=== PATIENT | male | born 1945 | race Caucasian/White ===

== ENCOUNTER 2025-05-05 14:57 | Inpatient (IN) | payer MEDICARE, OTHER ==
[~2025-05-05] VITALS: Ht 172.7 cm; Wt 68.0 kg
[2025-05-05 15:09] VITALS: BP 135/85; TEMP 98
[2025-05-05 15:36] VITALS: BP 135/85; TEMP 98
[2025-05-05 21:00] VITALS: BP 137/66; TEMP 98.2; O2SAT 95
[2025-05-05] MEDS ORDERED: TRAN650T2 PO (21:28)
[2025-05-05] MEDS ORDERED: PRAV40TA3 PO (21:28)
[2025-05-05] MEDS ORDERED: OXYC-470 PO (21:28)
[2025-05-05] MEDS ORDERED: ACET-73 PO (21:28)
[2025-05-05] MEDS ORDERED: TAMS-3 PO (21:28)
[2025-05-05] MEDS ORDERED: OMEP20TA20 PO (21:28)
[2025-05-05] MEDS ORDERED: MELO15TA13 PO (21:28)
[2025-05-05] MEDS ORDERED: TRAM50TA PO ×2 (21:28)
[2025-05-05] MEDS ORDERED: TADA5TAB2 PO (21:28)
[2025-05-05] MEDS ORDERED: ASPI81TA31 PO (21:28)
[2025-05-05] MEDS ORDERED: BUPR300T52 PO (21:28)
[2025-05-05] MEDS ORDERED: CYAN-51 PO (21:28)
[2025-05-05] MEDS ORDERED: SENN1TAB33 PO (21:28)
[2025-05-05] MEDS ORDERED: OXYCODONE HCL 5 MG TABLET PO PRN (23:00)
[2025-05-05] MEDS ORDERED: TRAMADOL HCL 50 MG TABLET PO PRN (23:00)
[2025-05-06 06:00] VITALS: BP 156/77; TEMP 98.1; O2SAT 95
[2025-05-06] MEDS: PANTOPRAZOLE SODIUM 40 MG TABLET.DR PO SCH (07:06)
[2025-05-06 07:34] VITALS: BP 147/70; TEMP 97.9; O2SAT 94
[2025-05-06] MEDS ORDERED: TRANEXAMIC ACID PO SCH (09:00)
[2025-05-06] MEDS ORDERED: MELOXICAM 7.5 MG TABLET PO SCH (09:00)
[2025-05-06] MEDS ORDERED: TRAMADOL HCL 50 MG TABLET PO SCH (09:00)
[2025-05-06] MEDS: buPROPion XL 150 MG TAB.SR.24H PO SCH (09:10)
[2025-05-06] MEDS: CYANOCOBALAMIN 1,000 MCG TABLET PO SCH (09:11)
[2025-05-06] MEDS: ASPIRIN 81 MG TAB.CHEW PO SCH (09:11)
[2025-05-06] MEDS: ACETAMINOPHEN 500 MG TABLET PO SCH (09:11)
[2025-05-06] MEDS: TAMSULOSIN HCL 0.4 MG CAP.SR.24H PO SCH (09:40)
[2025-05-06] MEDS: AMLODIPINE 5 MG TABLET PO SCH (10:07)
[2025-05-06] MEDS: SENNOSIDES/DOCUSATE SODIUM TABLET PO PRN (10:36)
[2025-05-06] MEDS: MELOXICAM 7.5 MG TABLET PO SCH (12:05)
[2025-05-06 16:10] VITALS: BP 126/61; TEMP 97.7; O2SAT 96
[2025-05-06] MEDS ORDERED: ATORVASTATIN 10 MG TABLET PO SCH (18:00)
[2025-05-06 20:05] VITALS: BP 125/64; TEMP 97.4; O2SAT 96
[2025-05-06] MEDS ORDERED: TAMSULOSIN HCL 0.4 MG CAP.SR.24H PO SCH (21:00)
[2025-05-06] MEDS: ATORVASTATIN 10 MG TABLET PO SCH (22:15)
[2025-05-07 06:00] VITALS: BP 141/71; TEMP 97.8; O2SAT 96
[2025-05-07] MEDS: TRAMADOL HCL 50 MG TABLET PO PRN (06:13)
[2025-05-07 08:00] VITALS: BP 143/75; TEMP 97.6; O2SAT 98
[2025-05-07] MEDS: TADALAFIL 5 MG PO SCH (08:21)
[2025-05-07] MEDS: GLUCERNA SHAKE 237 ML CAN PO SCH (08:22)
[2025-05-07 10:17] VITALS: BP_SYST 108; BP_SYST 110; BP_SYST 118; BP_DIAS 55; BP_DIAS 62; BP_DIAS 64
[2025-05-07 11:28] LABS: PLATELET COUNT (AUTO) 161 K/uL (152-348); RED BLOOD CELL COUNT(AUTO) 3.33 MIL/uL (4.06-5.63); RED CELL DISTRIBUTION WIDTH 14.0 % (12.1-16.2); WHITE BLOOD COUNT (AUTO) 4.6 K/uL (3.6-10.2)
[2025-05-07 11:39] LABS: CREATININE 1.0 mg/dL (0.6-1.3); SODIUM SERUM 141 mmol/L (136-145); UREA NITROGEN, BLOOD 21 mg/dL (7-18)
[2025-05-07 16:00] VITALS: BP 135/65; TEMP 97.6; O2SAT 100
[2025-05-07] MEDS: GABAPENTIN 300 MG CAPSULE PO SCH (16:51)
[2025-05-07 20:22] VITALS: BP 131/67; TEMP 97.8; O2SAT 96
[2025-05-08 06:52] VITALS: BP 116/68; TEMP 98.3; O2SAT 96
[2025-05-08 08:00] VITALS: BP 145/67; TEMP 97.8; O2SAT 95
[2025-05-08] MEDS: LACTULOSE 20 G/30 ML LIQUID UDC PO ONE (10:20)
[2025-05-08 16:03] VITALS: BP 120/54; TEMP 97.7; O2SAT 96
[2025-05-08] MEDS: DOCUSATE SODIUM 100 MG CAPSULE PO SCH (16:57)
[2025-05-08 20:00] VITALS: BP 109/52; TEMP 97.4; O2SAT 96
[2025-05-09 05:00] VITALS: BP 128/69; TEMP 97.3; O2SAT 94
[2025-05-09 08:05] VITALS: BP 125/69; TEMP 98; O2SAT 98
[2025-05-09] MEDS: MIRALAX 17 GM POWD.PACK PO SCH (09:19)
[2025-05-09 16:20] VITALS: BP 133/61; TEMP 97.4; O2SAT 98
[2025-05-09 20:03] VITALS: BP 114/59; TEMP 97.5; O2SAT 96
[2025-05-10 06:48] VITALS: BP 132/70; TEMP 97.7; O2SAT 96
[2025-05-10 08:00] VITALS: BP 125/62; TEMP 98; O2SAT 95
[2025-05-10] MEDS ORDERED: OXYCODONE HCL 5 MG TABLET PO PRN (13:00)
[2025-05-10] MEDS: BISACODYL 5 MG TABLET.DR PO PRN (13:19)
[2025-05-10 16:22] VITALS: BP 113/53; TEMP 98; O2SAT 95
[2025-05-10 19:33] VITALS: BP 104/49; TEMP 97.4; O2SAT 96
[2025-05-11] MEDS: FLEET ENEMA 133 ML BOTTLE RC ONE (06:53)
[2025-05-11 06:55] VITALS: BP 134/72; TEMP 97.9; O2SAT 96
[2025-05-11 08:00] VITALS: BP 137/63; TEMP 97.2; O2SAT 97
[2025-05-11 16:00] VITALS: BP 128/63; TEMP 97.7; O2SAT 98
[2025-05-11 20:00] VITALS: BP 122/63; TEMP 97.2; O2SAT 95
[2025-05-12 05:00] VITALS: BP 137/72; TEMP 97.4; O2SAT 96
[2025-05-12 08:09] VITALS: BP 135/73; TEMP 97.8; O2SAT 97
[2025-05-12 16:28] VITALS: BP 127/76; TEMP 97.5; O2SAT 98
[2025-05-12 21:27] VITALS: BP 122/59; TEMP 97.7; O2SAT 95
[2025-05-13 06:09] VITALS: BP 132/62; TEMP 97.3; O2SAT 96
[2025-05-13 07:56] VITALS: BP 136/68; TEMP 97.6; O2SAT 96
[2025-05-13 16:17] VITALS: BP 134/70; TEMP 97.6; O2SAT 97
[2025-05-13 20:46] VITALS: BP 140/71; TEMP 98; O2SAT 97
[2025-05-14 06:32] VITALS: BP 140/70; TEMP 97.9; O2SAT 95
[2025-05-14 07:53] VITALS: BP 139/70; TEMP 98.7; O2SAT 94
[2025-05-14 08:30] LABS: PLATELET COUNT (AUTO) 262 K/uL (152-348); RED BLOOD CELL COUNT(AUTO) 3.70 MIL/uL (4.06-5.63); RED CELL DISTRIBUTION WIDTH 14.8 % (12.1-16.2); WHITE BLOOD COUNT (AUTO) 5.9 K/uL (3.6-10.2)
[2025-05-14 08:52] LABS: CREATININE 1.2 mg/dL (0.6-1.3); SODIUM SERUM 143 mmol/L (136-145); UREA NITROGEN, BLOOD 33 mg/dL (7-18)
[2025-05-14 15:56] VITALS: BP 119/58; TEMP 97.9; O2SAT 93
[2025-05-14 20:11] VITALS: BP 90/45; TEMP 97.1; O2SAT 96
[2025-05-14] MEDS ORDERED: CYCLOBENZAPRINE HCL 10 MG TABLET PO PRN (21:45)
[2025-05-15 05:03] VITALS: BP 105/68; TEMP 97.6; O2SAT 96
[2025-05-15 08:00] VITALS: BP 135/67; TEMP 97.6; O2SAT 96
== END 2025-05-15 14:10 | disposition home health service (06) | DRG 560 ==
PROVIDERS: ADMIT Physical Medicine & Rehabilitation Pain Medicine; ATTEND Physical Medicine & Rehabilitation Pain Medicine
DX: Z47.1 Aftercare following joint replacement surgery (principal); N17.9 Acute kidney failure, unspecified; E11.9 Type 2 diabetes mellitus without complications; E78.5 Hyperlipidemia, unspecified; Z96.652 Presence of left artificial knee joint; E80.4 Gilbert syndrome; D64.9 Anemia, unspecified; I10 Essential (primary) hypertension; N40.0 Benign prostatic hyperplasia without lower urinary tract symptoms; Z91.81 History of falling
CPT/HCPCS: 36415; 85025; 97535-GO-CO; A4663; A9150